=== PATIENT | female | born 1970 | race Caucasian/White ===

== ENCOUNTER 2021-07-20 15:42 | Observation (INO) | payer OTHER, SELFPAY ==
[2021-07-20] VITALS (20 sets, daily range): BP systolic 106–184; BP diastolic 64–84; PULSE 18–79; RESP 20; TEMP 36.9; O2SAT 91–100; BMI 35.7
[2021-07-20] MEDS: SODIUM CHLORIDE 0.9% 1,000 ML 1000 ML IV (17:08)
[2021-07-20] MEDS: ONDANSETRON 4 MG/2 ML INJ IV (17:08)
[2021-07-20 17:17] LABS: Add Manual Diff / Slide Review NO; Basophils Absolute Auto 0 /uL (0-100); Basophils Percent Auto 0.1 % (0-2); Eosinophils Absolute Auto 0 /uL (0-450); Hematocrit 37.1 % (36-46); Hemoglobin 12.3 g/dL (12.0-16.0); Lymphocytes Absolute Auto 600 /uL (1100-4500); Lymphocytes Percent Auto 4.9 % (25-40); Mean Corpuscular HGB Conc 33.2 % (30-36); Mean Corpuscular Hemoglobin 28.7 PG (26-34); Mean Corpuscular Volume 86.5 fL (80-100); Monocytes Absolute Auto 200 /uL (0-900); Monocytes Percent Auto 1.8 % (3-14); Neutrophils Absolute Auto 12300 /uL (1500-7000); Neutrophils Percent Auto 93.2 % (50-75); Platelet Count 251 X10^3/uL (150-400); Red Blood Cell Count 4.28 X10^6/uL (4.0-5.2); Red Cell Distribution Width 14.1 % (11.6-14.8); White Blood Cell Count 13.2 X10^3/uL (4.5-11.0)
[2021-07-20 17:27] LABS: Alanine Aminotransferase 15 IU/L (<35); Albumin 4.3 g/dL (3.5-5.0); Albumin Globulin Ratio 1.3 (1.0-2.8); Alkaline Phosphatase 47 U/L (38-126); Aspartate Aminotransferase 21 IU/L (14-36); BUN Creatinine Ratio 17.8 (6-22); Bilirubin Total 0.7 mg/dL (0.2-1.3); Blood Urea Nitrogen 16 mg/dL (7-17); Calcium 9.2 mg/dL (8.4-10.2); Carbon Dioxide 23 mmol/L (22-32); Chloride 107 mmol/L (98-107); Estimated Glomerular Filt Rate > 60.0 mL/min (>60); Globulin 3.2 g/dL (1.7-4.1); Glucose 147 mg/dL (70-100); HEMOLYSIS < 15 (0-50); Lipase 77 U/L (23-300); Potassium 4.3 mmol/L (3.4-5.1); Sodium 138 mmol/L (137-145); Total Protein 7.5 g/dL (6.3-8.2)
--- NOTE | 2021-07-20 18:05 | ED.NAVMDI ---
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 this morning she notes that throughout the day she has been vomiting almost every 45 minutes she took some Zofran in the middle of the day that did not influence her vomiting. Currently at [employer] The emesis was initially food then bilious. She reports no coffee-ground or bloody emesis. Reports a single formed stool this morning and no associated diarrhea. She has never had abdominal surgeries and has never had similar complaints. She does note that a month ago she woke up early in the morning and had a single episode of emesis which was unusual for her. She describes no headaches, cough, fever, chills, rashes, palpitations or chest pain. Related Data Previous Rx's Medication Instructions Recorded acetaminophen 325 mg capsule 650 mg PO QID PRN #60 cap 07/23/21 (Tylenol) docusate sodium 100 mg capsule 100 mg PO BID #30 cap 07/23/21 (Colace) hydrocodone 10 mg-acetaminophen 1 tab PO Q6H PRN #16 tab 07/23/21 325 mg tablet ibuprofen 200 mg tablet 400 mg PO Q6H #60 tab 07/23/21 Allergies Allergy/AdvReac Type Severity Reaction Status Date / Time No Known Drug Allergies Allergy Verified 07/21/21 18:41 Review of Systems <Priya Hinds MD - Last Filed: 07/24/21 10:25> Review of Systems Narrative: Remainder of complete review of systems is otherwise unremarkable except for that included in the HPI. Patient History <Priya Hinds MD - Last Filed: 07/24/21 10:25> Social History household members: spouse Smoking Status: Never smoker alcohol intake: current Smoking Status: Never smoker alcohol intake frequency: holidays/special occasions only Substance Use Type: does not use Exam <Priya Hinds MD - Last Filed: 07/24/21 10:25> Narrative Exam Narrative: General: Healthy appearing, in no acute distress. Able to give a complete and coherent history. Well-nourished well-developed HEENT: Moist mucous membranes, normal sclera with reactive pupils, Neck: No JVD, supple Respiratory: Lungs are clear to auscultation, no wheezing no rales no rhonchi. Full and symmetrical air movement Cardiac: Regular rate and rhythm no murmurs no bruits Abdomen: Soft, significantly tender over the epigastrium with moderate tenderness into the right and left upper quadrants without rebound or guarding. Hypoactive bowel tones but no flank pain Skin: Warm and dry, no rashes Neurologic: Grossly neurologically intact with no obvious asymmetries or abnormalities Extremities: No trauma, well perfused Psych: Cooperative, appropriate insight and affect Initial Vital Signs Initial Vital Signs: Vital Signs Temperature 98.5 F 07/20/21 15:55 Pulse Rate 60 07/20/21 15:55 Respiratory Rate 20 07/20/21 15:55 Blood Pressure 184/76 H 07/20/21 15:55 Pulse Oximetry 99 07/20/21 15:55 <Hilario Davila DO - Last Filed: 07/21/21 12:35> Initial Vital Signs Initial Vital Signs: Vital Signs Temperature 98.5 F 07/20/21 15:55 Pulse Rate 60 07/20/21 15:55 Respiratory Rate 20 07/20/21 15:55 Blood Pressure 184/76 H 07/20/21 15:55 Pulse Oximetry 99 07/20/21 15:55 Course <Priya Hinds MD - Last Filed: 07/24/21 10:25> Orders Ordered: Discontinued Medications Acetaminophen (Acetaminophen 325 Mg Tablet) 650 mg PO Q6HR PRN PRN Reason: Fever/Mild Pain (1-3) Last Admin: 07/22/21 22:02 Dose: 650 mg Documented by: Admin: 07/21/21 19:41 Dose: 650 mg Documented by: ARMANDO Acetaminophen (Acetaminophen 325 Mg Tablet) 650 mg PO NOW ONE Stop: 07/22/21 14:11 Last Admin: 07/22/21 14:41 Dose: 650 mg Documented by: EDDIE Hydrocodone Bitart/Acetaminophen (Hydrocodone/Acet 5/325 Tablet) 1 tab PO Q4HR PRN PRN Reason: Pain, Moderate (4-6) Last Admin: 07/23/21 11:13 Dose: 1 tab Documented by: SHAY Albuterol (Albuterol 2.5 Mg/3 Ml Neb (Adult)) 2.5 mg INH NOW PRN PRN Reason: Coughing, Wheezing, Dyspnea Bupivacaine HCl (Bupivacaine 0.5% (Pf) Vial) 30 ml INJ NOW ONE Stop: 07/22/21 15:27 Last Admin: 07/22/21 15:29 Dose: 20 ml Documented by: MARGY Cefazolin Sodium/Dextrose (Cefazolin 2 Gm/20 Ml Syringe) 2 gm IV NOW ONE Stop: 07/22/21 15:26 Last Admin: 07/22/21 15:10 Dose: 2 gm Documented by: SUKUMAR Fentanyl (Fentanyl 100 Mcg/2 Ml Inj) 0 mcg IV Q5M PRN PRN Reason: Pain, Moderate (4-6) Last Admin: 07/22/21 16:59 Dose: 50 mcg Documented by: LUKAS Gabapentin (Gabapentin 300 Mg Capsule) 300 mg PO NOW ONE Stop: 07/22/21 14:11 Last Admin: 07/22/21 14:41 Dose: 300 mg Documented by: EDDIE Hydromorphone HCl (Hydromorphone 0.5 Mg Inj) 0.5 mg IV Q15MIN PRN PRN Reason: Pain, Last Admin: 07/21/21 05:34 Dose: 0.5 mg Documented by: Admin: 07/20/21 20:38 Dose: 0.5 mg Documented by: RENEE Hydromorphone HCl (Hydromorphone 1 Mg Inj) 0.5 mg IV Q3H PRN PRN Reason: Pain, Severe (7-10) Last Admin: 07/22/21 18:26 Dose: 0.5 mg Documented by: SHAY Hydromorphone HCl (Hydromorphone 2 Mg Inj) 0 mg IV Q5MIN PRN PRN Reason: Pain, Mild (1-3) Sodium Chloride (Normal Saline 0.9%) 1,000 mls @ 1,000 mls/hr IV BOLUS ONE Stop: 07/20/21 18:00 Last Infusion: 07/20/21 18:19 Dose: 0 mls/hr Documented by: Admin: 07/20/21 17:08 Dose: 1,000 mls/hr Documented by: RENEE Sodium Chloride (Normal Saline 0.9%) 1,000 mls @ 150 mls/hr IV CONT BENJA Last Infusion: 07/21/21 10:00 Dose: 0 mls/hr Documented by: Admin: 07/21/21 04:12 Dose: 150 mls/hr Documented by: Infusion: 07/21/21 03:18 Dose: 150 mls/hr Documented by: Admin: 07/20/21 20:37 Dose: 150 mls/hr Documented by: RENEE Sodium Chloride (Normal Saline 0.9%) 500 mls @ 125 mls/hr IV BOLUS ONE Stop: 07/21/21 19:44 Last Infusion: 07/21/21 16:30 Dose: 0 mls/hr Documented by: Admin: 07/21/21 12:00 Dose: 125 mls/hr Documented by: ROSE Lactated Ringer's (Lactated Ringers) 1,000 mls @ 100 mls/hr IV CONT BENJA Last Admin: 07/22/21 18:27 Dose: 100 mls/hr Documented by: Infusion: 07/22/21 15:05 Dose: 100 mls/hr Documented by: Admin: 07/22/21 05:05 Dose: 100 mls/hr Documented by: Infusion: 07/22/21 05:05 Dose: 100 mls/hr Documented by: Admin: 07/21/21 19:16 Dose: 100 mls/hr Documented by: SMMARQUITA Lactated Ringer's (Lactated Ringers) 1,000 mls @ 42 mls/hr IV CONT BENJA Last Admin: 07/22/21 14:43 Dose: 42 mls/hr Documented by: EDDIE Ibuprofen (Ibuprofen 600 Mg Tablet) 600 mg PO Q6HR PRN PRN Reason: Fever/Mild Pain (1-3) Last Admin: 07/23/21 11:14 Dose: 600 mg Documented by: Admin: 07/23/21 05:08 Dose: 600 mg Documented by: Admin: 07/22/21 22:02 Dose: 600 mg Documented by: LUPE Influenza Virus Vaccine (Influenza Vaccine Qiv 0.5 Ml Syringe) 0.5 ml IM .ONCE ONE Stop: 07/23/21 08:01 Last Admin: 07/23/21 10:22 Dose: 0.5 ml Documented by: SHAY Iopamidol (Iopamidol 15 Ml Vial) 15 ml INJ NOW ONE Stop: 07/22/21 15:32 Last Admin: 07/22/21 15:32 Dose: 30 ml Documented by: MARGY Lidocaine/Epinephrine (Lidocaine 1% W/Epi) 20 ml INJ NOW ONE Stop: 07/22/21 15:30 Last Admin: 07/22/21 15:30 Dose: 20 ml Documented by: MARGY Metoclopramide HCl (Metoclopramide 10 Mg/2 Ml Inj) 10 mg IV Q8HR PRN PRN Reason: Nausea And Vomiting Last Admin: 07/22/21 18:26 Dose: 10 mg Documented by: SHAY Naloxone HCl (Naloxone 0.4 Mg/Ml Vial) 0.2 mg IV Q2MIN PRN PRN Reason: Opiate Reversal Ondansetron HCl (Ondansetron 4 Mg/2 Ml Inj) 4 mg IV NOW ONE Stop: 07/20/21 17:03 Last Admin: 07/20/21 17:08 Dose: 4 mg Documented by: RENEE Ondansetron HCl (Ondansetron 4 Mg/2 Ml Inj) 4 mg IV Q8HR PRN PRN Reason: Nausea And Vomiting Last Admin: 07/22/21 17:13 Dose: 4 mg Documented by: LUKAS Ondansetron HCl (Ondansetron 4 Mg/2 Ml Inj) 4 mg IV NOW PRN PRN Reason: Nausea And Vomiting Oxycodone HCl (Oxycodone Ir 5 Mg Tablet) 5 mg PO PACUNOW PRN PRN Reason: Mild or moderate pain Last Admin: 07/22/21 17:15 Dose: 5 mg Documented by: LUKAS Scopolamine (Scopolamine 1 Patch) 1 patch TOP NOW ONE Stop: 07/22/21 14:11 Last Admin: 07/22/21 14:40 Dose: 1 patch Documented by: EDDIE Sodium Chloride (Sodium Chloride 0.9% Flush) 10 ml IV NOW ONE Stop: 07/22/21 15:33 Last Admin: 07/22/21 15:32 Dose: 30 ml Documented by: MARGY Vital Signs Vital signs: Vital Signs - 8 hr 07/21/21 04:42 07/21/21 04:43 07/21/21 05:00 Pulse Rate 57 L 52 L 50 L Respiratory Rate 17 Blood Pressure 106/67 106/67 Pulse Oximetry 96 98 96 07/21/21 05:36 07/21/21 06:00 07/21/21 06:30 Pulse Rate 64 53 L 52 L Respiratory Rate Blood Pressure Pulse Oximetry 91 93 95 07/21/21 07:00 07/21/21 07:30 07/21/21 08:00 Pulse Rate 53 L 49 L 49 L Respiratory Rate Blood Pressure Pulse Oximetry 95 93 94 07/21/21 08:30 07/21/21 09:00 07/21/21 09:30 Pulse Rate 56 L 49 L 46 L Respiratory Rate Blood Pressure Pulse Oximetry 95 94 95 07/21/21 09:59 Pulse Rate 58 L Respiratory Rate Blood Pressure 92/59 L Pulse Oximetry 96 <Hialrio Davila DO - Last Filed: 07/21/21 12:35> Orders Ordered: Discontinued Medications Acetaminophen (Acetaminophen 325 Mg Tablet) 650 mg PO Q6HR PRN PRN Reason: Fever/Mild Pain (1-3) Last Admin: 07/22/21 22:02 Dose: 650 mg Documented by: Admin: 07/21/21 19:41 Dose: 650 mg Documented by: ARMANDO Acetaminophen (Acetaminophen 325 Mg Tablet) 650 mg PO NOW ONE Stop: 07/22/21 14:11 Last Admin: 07/22/21 14:41 Dose: 650 mg Documented by: EDDIE Hydrocodone Bitart/Acetaminophen (Hydrocodone/Acet 5/325 Tablet) 1 tab PO Q4HR PRN PRN Reason: Pain, Moderate (4-6) Last Admin: 07/23/21 11:13 Dose: 1 tab Documented by: SHAY Albuterol (Albuterol 2.5 Mg/3 Ml Neb (Adult)) 2.5 mg INH NOW PRN PRN Reason: Coughing, Wheezing, Dyspnea Bupivacaine HCl (Bupivacaine 0.5% (Pf) Vial) 30 ml INJ NOW ONE Stop: 07/22/21 15:27 Last Admin: 07/22/21 15:29 Dose: 20 ml Documented by: MARGY Cefazolin Sodium/Dextrose (Cefazolin 2 Gm/20 Ml Syringe) 2 gm IV NOW ONE Stop: 07/22/21 15:26 Last Admin: 07/22/21 15:10 Dose: 2 gm Documented by: SUKUMAR Fentanyl (Fentanyl 100 Mcg/2 Ml Inj) 0 mcg IV Q5M PRN PRN Reason: Pain, Moderate (4-6) Last Admin: 07/22/21 16:59 Dose: 50 mcg Documented by: LUKAS Gabapentin (Gabapentin 300 Mg Capsule) 300 mg PO NOW ONE Stop: 07/22/21 14:11 Last Admin: 07/22/21 14:41 Dose: 300 mg Documented by: EDDIE Hydromorphone HCl (Hydromorphone 0.5 Mg Inj) 0.5 mg IV Q15MIN PRN PRN Reason: Pain, Last Admin: 07/21/21 05:34 Dose: 0.5 mg Documented by: Admin: 07/20/21 20:38 Dose: 0.5 mg Documented by: RENEE Hydromorphone HCl (Hydromorphone 1 Mg Inj) 0.5 mg IV Q3H PRN PRN Reason: Pain, Severe (7-10) Last Admin: 07/22/21 18:26 Dose: 0.5 mg Documented by: SHAY Hydromorphone HCl (Hydromorphone 2 Mg Inj) 0 mg IV Q5MIN PRN PRN Reason: Pain, Mild (1-3) Sodium Chloride (Normal Saline 0.9%) 1,000 mls @ 1,000 mls/hr IV BOLUS ONE Stop: 07/20/21 18:00 Last Infusion: 07/20/21 18:19 Dose: 0 mls/hr Documented by: Admin: 07/20/21 17:08 Dose: 1,000 mls/hr Documented by: RENEE Sodium Chloride (Normal Saline 0.9%) 1,000 mls @ 150 mls/hr IV CONT BENJA Last Infusion: 07/21/21 10:00 Dose: 0 mls/hr Documented by: Admin: 07/21/21 04:12 Dose: 150 mls/hr Documented by: Infusion: 07/21/21 03:18 Dose: 150 mls/hr Documented by: Admin: 07/20/21 20:37 Dose: 150 mls/hr Documented by: RENEE Sodium Chloride (Normal Saline 0.9%) 500 mls @ 125 mls/hr IV BOLUS ONE Stop: 07/21/21 19:44 Last Infusion: 07/21/21 16:30 Dose: 0 mls/hr Documented by: Admin: 07/21/21 12:00 Dose: 125 mls/hr Documented by: BTONEGabi Lactated Ringer's (Lactated Ringers) 1,000 mls @ 100 mls/hr IV CONT BENJA Last Admin: 07/22/21 18:27 Dose: 100 mls/hr Documented by: Infusion: 07/22/21 15:05 Dose: 100 mls/hr Documented by: Admin: 07/22/21 05:05 Dose: 100 mls/hr Documented by: Infusion: 07/22/21 05:05 Dose: 100 mls/hr Documented by: Admin: 07/21/21 19:16 Dose: 100 mls/hr Documented by: OSCAR Lactated Ringer's (Lactated Ringers) 1,000 mls @ 42 mls/hr IV CONT BENJA Last Admin: 07/22/21 14:43 Dose: 42 mls/hr Documented by: EDDIE Ibuprofen (Ibuprofen 600 Mg Tablet) 600 mg PO Q6HR PRN PRN Reason: Fever/Mild Pain (1-3) Last Admin: 07/23/21 11:14 Dose: 600 mg Documented by: Admin: 07/23/21 05:08 Dose: 600 mg Documented by: Admin: 07/22/21 22:02 Dose: 600 mg Documented by: LUPE Influenza Virus Vaccine (Influenza Vaccine Qiv 0.5 Ml Syringe) 0.5 ml IM .ONCE ONE Stop: 07/23/21 08:01 Last Admin: 07/23/21 10:22 Dose: 0.5 ml Documented by: SHAY Iopamidol (Iopamidol 15 Ml Vial) 15 ml INJ NOW ONE Stop: 07/22/21 15:32 Last Admin: 07/22/21 15:32 Dose: 30 ml Documented by: MARGY Lidocaine/Epinephrine (Lidocaine 1% W/Epi) 20 ml INJ NOW ONE Stop: 07/22/21 15:30 Last Admin: 07/22/21 15:30 Dose: 20 ml Documented by: MARGY Metoclopramide HCl (Metoclopramide 10 Mg/2 Ml Inj) 10 mg IV Q8HR PRN PRN Reason: Nausea And Vomiting Last Admin: 07/22/21 18:26 Dose: 10 mg Documented by: SHAY Naloxone HCl (Naloxone 0.4 Mg/Ml Vial) 0.2 mg IV Q2MIN PRN PRN Reason: Opiate Reversal Ondansetron HCl (Ondansetron 4 Mg/2 Ml Inj) 4 mg IV NOW ONE Stop: 07/20/21 17:03 Last Admin: 07/20/21 17:08 Dose: 4 mg Documented by: RENEE Ondansetron HCl (Ondansetron 4 Mg/2 Ml Inj) 4 mg IV Q8HR PRN PRN Reason: Nausea And Vomiting Last Admin: 07/22/21 17:13 Dose: 4 mg Documented by: LUKAS Ondansetron HCl (Ondansetron 4 Mg/2 Ml Inj) 4 mg IV NOW PRN PRN Reason: Nausea And Vomiting Oxycodone HCl (Oxycodone Ir 5 Mg Tablet) 5 mg PO PACUNOW PRN PRN Reason: Mild or moderate pain Last Admin: 07/22/21 17:15 Dose: 5 mg Documented by: LUKAS Scopolamine (Scopolamine 1 Patch) 1 patch TOP NOW ONE Stop: 07/22/21 14:11 Last Admin: 07/22/21 14:40 Dose: 1 patch Documented by: EDDIE Sodium Chloride (Sodium Chloride 0.9% Flush) 10 ml IV NOW ONE Stop: 07/22/21 15:33 Last Admin: 07/22/21 15:32 Dose: 30 ml Documented by: MARGY Vital Signs Vital signs: Vital Signs - 8 hr 07/21/21 04:42 07/21/21 04:43 07/21/21 05:00 Pulse Rate 57 L 52 L 50 L Respiratory Rate 17 Blood Pressure 106/67 106/67 Pulse Oximetry 96 98 96 07/21/21 05:36 07/21/21 06:00 07/21/21 06:30 Pulse Rate 64 53 L 52 L Respiratory Rate Blood Pressure Pulse Oximetry 91 93 95 07/21/21 07:00 07/21/21 07:30 07/21/21 08:00 Pulse Rate 53 L 49 L 49 L Respiratory Rate Blood Pressure Pulse Oximetry 95 93 94 07/21/21 08:30 07/21/21 09:00 07/21/21 09:30 Pulse Rate 56 L 49 L 46 L Respiratory Rate Blood Pressure Pulse Oximetry 95 94 95 07/21/21 09:59 Pulse Rate 58 L Respiratory Rate Blood Pressure 92/59 L Pulse Oximetry 96 MDM - Nausea/Vomiting/Diarrhea <Priya Hinds MD - Last Filed: 07/24/21 10:25> Lab Data Result diagrams: 07/21/21 07:20 07/21/21 07:20 Labs: Lab Results 07/20/21 07/20/21 07/20/21 Range/Units 17:00 17:00 20:30 WBC 13.2 H (4.5-11.0) X10^3/uL RBC 4.28 (4.0-5.2) X10^6/uL Hgb 12.3 (12.0-16.0) g/dL Hct 37.1 (36-46) % MCV 86.5 (80-100) fL MCH 28.7 (26-34) PG MCHC 33.2 (30-36) % RDW 14.1 (11.6-14.8) % Plt Count 251 (150-400) X10^3/uL Neut % (Auto) 93.2 H (50-75) % Lymph % (Auto) 4.9 L (25-40) % [place] % (Auto) 1.8 L (3-14) % Eos % (Auto) 0.0 L (2-4) % Baso % (Auto) 0.1 (0-2) % Neut # (Auto) 89099 H (1455-4591) /uL Lymph # (Auto) 600 L (6395-5415) /uL [place] # (Auto) 200 (0-900) /uL Eos # (Auto) 0 (0-450) /uL Baso # (Auto) 0 (0-100) /uL Sodium 138 (137-145) mmol/L Potassium 4.3 (3.4-5.1) mmol/L Chloride 107 (98-107) mmol/L Carbon Dioxide 23 (22-32) mmol/L BUN 16 (7-17) mg/dL Creatinine 0.90 (0.52-1.04) mg/dL Estimated GFR > 60.0 (>60) mL/min BUN/Creatinine Ratio 17.8 (6-22) Glucose 147 H (70-100) mg/dL Calcium 9.2 (8.4-10.2) mg/dL Total Bilirubin 0.7 (0.2-1.3) mg/dL AST 21 (14-36) IU/L ALT 15 (<35) IU/L Alkaline Phosphatase 47 (38-126) U/L Total Protein 7.5 (6.3-8.2) g/dL Albumin 4.3 (3.5-5.0) g/dL Globulin 3.2 (1.7-4.1) g/dL Albumin/Globulin Ratio 1.3 (1.0-2.8) Lipase 77 (23-300) U/L SARS-CoV-2 (PCR) Negative (Negative) 07/21/21 07/21/21 Range/Units 07:20 07:20 WBC 10.9 (4.5-11.0) X10^3/uL RBC 3.68 L (4.0-5.2) X10^6/uL Hgb 10.8 L (12.0-16.0) g/dL Hct 31.9 L (36-46) % MCV 86.8 (80-100) fL MCH 29.4 (26-34) PG MCHC 33.9 (30-36) % RDW 13.8 (11.6-14.8) % Plt Count 218 (150-400) X10^3/uL Neut % (Auto) (50-75) % Lymph % (Auto) (25-40) % [place] % (Auto) (3-14) % Eos % (Auto) (2-4) % Baso % (Auto) (0-2) % Neut # (Auto) (3795-8320) /uL Lymph # (Auto) (9934-8035) /uL [place] # (Auto) (0-900) /uL Eos # (Auto) (0-450) /uL Baso # (Auto) (0-100) /uL Sodium 140 (137-145) mmol/L Potassium 4.0 (3.4-5.1) mmol/L Chloride 111 H (98-107) mmol/L Carbon Dioxide 25 (22-32) mmol/L BUN 13 (7-17) mg/dL Creatinine 0.85 (0.52-1.04) mg/dL Estimated GFR > 60.0 (>60) mL/min BUN/Creatinine Ratio 15.3 (6-22) Glucose 97 (70-100) mg/dL Calcium 7.7 L (8.4-10.2) mg/dL Total Bilirubin 0.5 (0.2-1.3) mg/dL AST 17 (14-36) IU/L ALT 11 (<35) IU/L Alkaline Phosphatase 32 L (38-126) U/L Total Protein 5.7 L (6.3-8.2) g/dL Albumin 3.1 L (3.5-5.0) g/dL Globulin 2.6 (1.7-4.1) g/dL Albumin/Globulin Ratio 1.2 (1.0-2.8) Lipase (23-300) U/L SARS-CoV-2 (PCR) (Negative) Point of Care Testing Test Results Negative Urine Dip Bedside Urine Glucose Negative Bedside Urine Bilirubin - Negative Bedside Urine Ketone - Negative Urine Specific [place] 1.030 Bedside Urine Occult Blood +/- Bedside Urine pH 6.0 Bedside Urine Protein - Negative Bedside Urine Urobilinogen - Negative Bedside Urine Nitrite - Negative Bedside Urine Leukocytes - Negative Esterase MDM Narrative Medical decision making narrative: Otherwise healthy 50-year-old woman presents with acute onset right upper quadrant pain leukocytosis and dilated common bile duct and cystic duct with stones layering in the gallbladder. Question of developing cholecystitis verses choledocholithiasis. Liver function studies are normal at this time pain has been controlled. Case is reviewed with Dr. Torres, surgery. Given current pandemic conditions with no bed availability throughout [facility] and no definitive diagnosis of common duct stone will opt to for this patient in the emergency room overnight with anticipation of MRCP and repeat liver studies to be done in the morning. Will re-evaluate after studies return to see if she will need transfer to a facility with ERCP capacity or whether we are able to meet her needs at this facility. Plan and reasoning is reviewed with patient. She is agreeable. <Hilario Davila DO - Last Filed: 07/21/21 12:35> Lab Data Labs: Lab Results 07/20/21 07/20/21 07/20/21 Range/Units 17:00 17:00 20:30 WBC 13.2 H (4.5-11.0) X10^3/uL RBC 4.28 (4.0-5.2) X10^6/uL Hgb 12.3 (12.0-16.0) g/dL Hct 37.1 (36-46) % MCV 86.5 (80-100) fL MCH 28.7 (26-34) PG MCHC 33.2 (30-36) % RDW 14.1 (11.6-14.8) % Plt Count 251 (150-400) X10^3/uL Neut % (Auto) 93.2 H (50-75) % Lymph % (Auto) 4.9 L (25-40) % [place] % (Auto) 1.8 L (3-14) % Eos % (Auto) 0.0 L (2-4) % Baso % (Auto) 0.1 (0-2) % Neut # (Auto) 82587 H (5476-7995) /uL Lymph # (Auto) 600 L (2405-2503) /uL [place] # (Auto) 200 (0-900) /uL Eos # (Auto) 0 (0-450) /uL Baso # (Auto) 0 (0-100) /uL Sodium 138 (137-145) mmol/L Potassium 4.3 (3.4-5.1) mmol/L Chloride 107 (98-107) mmol/L Carbon Dioxide 23 (22-32) mmol/L BUN 16 (7-17) mg/dL Creatinine 0.90 (0.52-1.04) mg/dL Estimated GFR > 60.0 (>60) mL/min BUN/Creatinine Ratio 17.8 (6-22) Glucose 147 H (70-100) mg/dL Calcium 9.2 (8.4-10.2) mg/dL Total Bilirubin 0.7 (0.2-1.3) mg/dL AST 21 (14-36) IU/L ALT 15 (<35) IU/L Alkaline Phosphatase 47 (38-126) U/L Total Protein 7.5 (6.3-8.2) g/dL Albumin 4.3 (3.5-5.0) g/dL Globulin 3.2 (1.7-4.1) g/dL Albumin/Globulin Ratio 1.3 (1.0-2.8) Lipase 77 (23-300) U/L SARS-CoV-2 (PCR) Negative (Negative) 07/21/21 07/21/21 Range/Units 07:20 07:20 WBC 10.9 (4.5-11.0) X10^3/uL RBC 3.68 L (4.0-5.2) X10^6/uL Hgb 10.8 L (12.0-16.0) g/dL Hct 31.9 L (36-46) % MCV 86.8 (80-100) fL MCH 29.4 (26-34) PG MCHC 33.9 (30-36) % RDW 13.8 (11.6-14.8) % Plt Count 218 (150-400) X10^3/uL Neut % (Auto) (50-75) % Lymph % (Auto) (25-40) % [place] % (Auto) (3-14) % Eos % (Auto) (2-4) % Baso % (Auto) (0-2) % Neut # (Auto) (9866-3895) /uL Lymph # (Auto) (7766-7501) /uL [place] # (Auto) (0-900) /uL Eos # (Auto) (0-450) /uL Baso # (Auto) (0-100) /uL Sodium 140 (137-145) mmol/L Potassium 4.0 (3.4-5.1) mmol/L Chloride 111 H (98-107) mmol/L Carbon Dioxide 25 (22-32) mmol/L BUN 13 (7-17) mg/dL Creatinine 0.85 (0.52-1.04) mg/dL Estimated GFR > 60.0 (>60) mL/min BUN/Creatinine Ratio 15.3 (6-22) Glucose 97 (70-100) mg/dL Calcium 7.7 L (8.4-10.2) mg/dL Total Bilirubin 0.5 (0.2-1.3) mg/dL AST 17 (14-36) IU/L ALT 11 (<35) IU/L Alkaline Phosphatase 32 L (38-126) U/L Total Protein 5.7 L (6.3-8.2) g/dL Albumin 3.1 L (3.5-5.0) g/dL Globulin 2.6 (1.7-4.1) g/dL Albumin/Globulin Ratio 1.2 (1.0-2.8) Lipase (23-300) U/L SARS-CoV-2 (PCR) (Negative) Point of Care Testing Test Results Negative Urine Dip Bedside Urine Glucose Negative Bedside Urine Bilirubin - Negative Bedside Urine Ketone - Negative Urine Specific [place] 1.030 Bedside Urine Occult Blood +/- Bedside Urine pH 6.0 Bedside Urine Protein - Negative Bedside Urine Urobilinogen - Negative Bedside Urine Nitrite - Negative Bedside Urine Leukocytes - Negative Esterase Imaging Data MRCP: Radiologist's Impression: [address] [address] Magnetic Resonance Report Signed Patient: Inés Cooper MR#: [id number] : 1970 Acct:[id number] Age/Sex: 50 / F Date of Service: 07/20/21 Loc: ED Accession Number: [id number] ?? Procedure: MR abdomen wo con Ordering Provider: Priya Hinds MD PROCEDURE:? MR ABDOMEN WO CON ? INDICATIONS:? ? common duct stone ? TECHNIQUE:? Coronal HASTE through the abdomen, axial 2-D FLASH in- and [id number], and breath-hold T2 FSE with fat saturation through the biliary system and pancreas.? Oblique coronal and axial thin-slice HASTE, radial thick-slab HASTE centered on the extrahepatic bile ducts.? ? ? Intravenous secretin:? Not requested.? ? COMPARISON:? [facility], CT, CT ABDOMEN PELVIS W CON, 07/20/2021, 18:27. ? FINDINGS:? Image quality:? Excellent.? ? Pancreas and biliary system:? Moderate pericholecystic fluid.? There are several stones dependently in the gallbladder fundus.? A stone is seen in the cystic duct.? The common bile duct is 1.3-1.4 cm in diameter.? There are no filling defects.? The duct tapers abruptly at the ampulla.? Minor diffuse intrahepatic biliary dilatation.? The pancreatic duct is normal caliber.? The pancreas appears otherwise normal. ? Other solid organs:? Liver is normal in size.? Scattered hepatic cysts.? Spleen is normal in size.? No adrenal nodules.? Both kidneys are normal in size, without hydronephrosis.? ? Nodes and vessels:? No retroperitoneal or mesenteric adenopathy by size criteria.? Aorta and inferior vena cava are normal in size.? ? Bowel and peritoneum:? Unenhanced bowel loops are normal in caliber.? No free fluid.? ? Lung bases:? No basal pleural effusions.? Heart size is normal.? ? Bones and soft tissues:? No ventral hernias.? Bone marrow is of normal overall signal.? ? IMPRESSION:? 1. Findings of acute cholecystitis including a cystic duct stone.? Surgical consult recommended. 2. Dilated common duct without filling defect.? This can be seen with ampullary edema or distal common duct stricture.? ? ? Dictated by: Deborah Jorgensen M.D. on 07/21/2021 at 11:58 ? ? Approved by: Deborah Jorgensen M.D. on 07/21/2021 at 12:05?? MDM Narrative Medical decision making narrative: Otherwise healthy 50-year-old woman presents with acute onset right upper quadrant pain leukocytosis and dilated common bile duct and cystic duct with stones layering in the gallbladder. Question of developing cholecystitis verses choledocholithiasis. Liver function studies are normal at this time pain has been controlled. Case is reviewed with Dr. Torres, surgery. Given current pandemic conditions with no bed availability throughout [facility] and no definitive diagnosis of common duct stone will opt to for this patient in the emergency room overnight with anticipation of MRCP and repeat liver studies to be done in the morning. Will re-evaluate after studies return to see if she will need transfer to a facility with ERCP capacity or whether we are able to meet her needs at this facility. Plan and reasoning is reviewed with patient. She is agreeable. Dr davila: Received turned over. Review patient's history and physical. Patient's MRCP is consistent with acute cholecystitis without a common bile duct stone. Patient's repeat labs unremarkable. Discussed case with Dr. Chau on-call for General surgery who recommended that the patient be admitted for a gallbladder removal. I did discuss this with the patient. She is in agreement. We did discuss the possibility of going home and coming back as an outpatient however she would like to have the procedure done now. Pain is controlled. Discharge Plan Departure Patient Disposition: Admitted as Observation Clinical Impression: Acute cholecystitis Admit Date/Time: 07/21/21 14:13 Admit Provider: Bakari Chau
--- NOTE | 2021-07-20 18:16 | DI.CT.S_ITS ---
PROCEDURE: CT ABDOMEN PELVIS W CON INDICATIONS: Acute upper abdominal pain with leukocytosis and persistent TECHNIQUE: After the administration of intravenous contrast, axial sections acquired from the lung bases to the pubic symphysis. Coronal and sagittal reformats were performed. For radiation dose reduction, the following was used: automated exposure control, adjustment of mA and/or kV according to patient size. COMPARISON: None. FINDINGS: Common bile duct is dilated up to 15 millimeters. The cystic duct also appears mildly dilated. There are a few small calcified gallstones near the gallbladder neck and layering dependently in the gallbladder. No definite gallbladder wall thickening. Small volume pericholecystic fluid adjacent to the liver. Mild intrahepatic biliary ductal dilatation. Liver otherwise normal. Normal CT appearance of the spleen, adrenal glands, kidneys, and pancreas. No abnormally dilated or thickened loop of bowel. No pericolonic or mesenteric inflammatory changes. Nonaneurysmal and otherwise unremarkable abdominal aorta. No threshold enlarged intra-abdominal, retroperitoneal, pelvic, or inguinal lymph node. Urinary bladder, uterus, and ovaries are within normal limits. Small volume free pelvic fluid is within physiologic normal limits if the patient is still menstruating. No acute or suspicious osseous abnormality. Included portions of the lung bases are clear. IMPRESSION: Cholelithiasis with dilated common bile duct and possibly cystic duct, along with small volume pericholecystic fluid. Findings raise concern for cholecystitis and potentially obstructive choledocholithiasis. Dictated by: Jean Paul Camp M.D. on 07/20/2021 at 18:50 Approved by: Jean Paul Camp M.D. on 07/20/2021 at 18:53
--- NOTE | 2021-07-20 20:28 | DI.MRI.S_ITS ---
PROCEDURE: MR ABDOMEN WO CON INDICATIONS: ? common duct stone TECHNIQUE: Coronal HASTE through the abdomen, axial 2-D FLASH in- and [id number], and breath-hold T2 FSE with fat saturation through the biliary system and pancreas. Oblique coronal and axial thin-slice HASTE, radial thick-slab HASTE centered on the extrahepatic bile ducts. Intravenous secretin: Not requested. COMPARISON: [facility], CT, CT ABDOMEN PELVIS W CON, 07/20/2021, 18:27. FINDINGS: Image quality: Excellent. Pancreas and biliary system: Moderate pericholecystic fluid. There are several stones dependently in the gallbladder fundus. A stone is seen in the cystic duct. The common bile duct is 1.3-1.4 cm in diameter. There are no filling defects. The duct tapers abruptly at the ampulla. Minor diffuse intrahepatic biliary dilatation. The pancreatic duct is normal caliber. The pancreas appears otherwise normal. Other solid organs: Liver is normal in size. Scattered hepatic cysts. Spleen is normal in size. No adrenal nodules. Both kidneys are normal in size, without hydronephrosis. Nodes and vessels: No retroperitoneal or mesenteric adenopathy by size criteria. Aorta and inferior vena cava are normal in size. Bowel and peritoneum: Unenhanced bowel loops are normal in caliber. No free fluid. Lung bases: No basal pleural effusions. Heart size is normal. Bones and soft tissues: No ventral hernias. Bone marrow is of normal overall signal. IMPRESSION: 1. Findings of acute cholecystitis including a cystic duct stone. Surgical consult recommended. 2. Dilated common duct without filling defect. This can be seen with ampullary edema or distal common duct stricture. Dictated by: Deborah Jorgensen M.D. on 07/21/2021 at 11:58 Approved by: Deborah Jorgensen M.D. on 07/21/2021 at 12:05
[2021-07-20] MEDS: SODIUM CHLORIDE 0.9% 1,000 ML 150 ML IV (20:37)
[2021-07-20] MEDS: HYDROMORPHONE 0.5 MG INJ IV (20:38)
[2021-07-20 21:44] LABS: COVID19 - ADMIT (NP swab/PCR) Negative (Negative)
[2021-07-21] VITALS (38 sets, daily range): BP systolic 92–128; BP diastolic 59–73; PULSE 46–87; RESP 17–20; TEMP 36.3–36.8; O2SAT 91–98; BMI 35.7
[2021-07-21] MEDS: SODIUM CHLORIDE 0.9% 1,000 ML 150 ML IV (04:12)
[2021-07-21] MEDS: HYDROMORPHONE 0.5 MG INJ IV (05:34)
[2021-07-21 07:27] LABS: Hematocrit 31.9 % (36-46); Hemoglobin 10.8 g/dL (12.0-16.0); Mean Corpuscular HGB Conc 33.9 % (30-36); Mean Corpuscular Hemoglobin 29.4 PG (26-34); Mean Corpuscular Volume 86.8 fL (80-100); Platelet Count 218 X10^3/uL (150-400); Red Blood Cell Count 3.68 X10^6/uL (4.0-5.2); Red Cell Distribution Width 13.8 % (11.6-14.8); White Blood Cell Count 10.9 X10^3/uL (4.5-11.0)
[2021-07-21 07:43] LABS: Alanine Aminotransferase 11 IU/L (<35); Albumin 3.1 g/dL (3.5-5.0); Albumin Globulin Ratio 1.2 (1.0-2.8); Alkaline Phosphatase 32 U/L (38-126); Aspartate Aminotransferase 17 IU/L (14-36); BUN Creatinine Ratio 15.3 (6-22); Bilirubin Total 0.5 mg/dL (0.2-1.3); Blood Urea Nitrogen 13 mg/dL (7-17); Calcium 7.7 mg/dL (8.4-10.2); Carbon Dioxide 25 mmol/L (22-32); Chloride 111 mmol/L (98-107); Estimated Glomerular Filt Rate > 60.0 mL/min (>60); Globulin 2.6 g/dL (1.7-4.1); Glucose 97 mg/dL (70-100); HEMOLYSIS 16 (0-50); Sodium 140 mmol/L (137-145); Total Protein 5.7 g/dL (6.3-8.2)
[2021-07-21] MEDS: SODIUM CHLORIDE 0.9% 500 ML 125 ML IV (12:00)
--- NOTE | 2021-07-21 16:52 | P.HP_ITS ---
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 She had similar symptoms once before but it resolved. She came to the ER last night and a CT demonstrated gallstones. There was also a suggestion of a dilated common bile duct and so an MRCP was performed. No common bile duct stone or other obstruction was noted. Her pain has improved somewhat since receiving pain medication here. Patient History Family & Social History Safety & Behavioral: Feels Safe in Current Yes Environment Been Physically Hurt or No Threatened By a Person Tobacco & Substance use: Smoking Status Never smoker alcohol intake frequency holiday/special occasion Substance Use Type does not use Exam Vital Signs (past 8 hours): - 07/21/21 09:00 07/21/21 09:30 07/21/21 09:58 Pulse Rate 49 L 46 L 62 Blood Pressure 92/59 L Pulse Oximetry 94 95 96 07/21/21 09:59 07/21/21 10:00 07/21/21 10:39 Pulse Rate 58 L 51 L 87 Blood Pressure 92/59 L Pulse Oximetry 96 93 96 07/21/21 11:00 07/21/21 11:30 07/21/21 12:00 Pulse Rate 59 L 54 L 57 L Blood Pressure Pulse Oximetry 95 95 97 07/21/21 12:30 07/21/21 13:00 07/21/21 13:30 Pulse Rate 58 L 58 L 63 Blood Pressure Pulse Oximetry 96 96 96 07/21/21 14:00 07/21/21 14:30 07/21/21 15:00 Pulse Rate 56 L 62 70 Blood Pressure Pulse Oximetry 96 97 94 Oxygen Delivery Method Room Air Narrative Exam Narrative: No acute distress Abdomen soft, tender to palpation in the right upper quadrant. No Mccall sign. Objective Labs Result Diagrams: 07/21/21 07:20 07/21/21 07:20 Labs: Laboratory Results - last 24 hr 07/20/21 07/20/21 07/20/21 17:00 17:00 20:30 WBC 13.2 H RBC 4.28 Hgb 12.3 Hct 37.1 MCV 86.5 MCH 28.7 MCHC 33.2 RDW 14.1 Plt Count 251 Neut % (Auto) 93.2 H Lymph % (Auto) 4.9 L Lawrence % (Auto) 1.8 L Eos % (Auto) 0.0 L Baso % (Auto) 0.1 Neut # (Auto) 89750 H Lymph # (Auto) 600 L Lawrence # (Auto) 200 Eos # (Auto) 0 Baso # (Auto) 0 Sodium 138 Potassium 4.3 Chloride 107 Carbon Dioxide 23 BUN 16 Creatinine 0.90 Estimated GFR > 60.0 BUN/Creatinine Ratio 17.8 Glucose 147 H Calcium 9.2 Total Bilirubin 0.7 AST 21 ALT 15 Alkaline Phosphatase 47 Total Protein 7.5 Albumin 4.3 Globulin 3.2 Albumin/Globulin Ratio 1.3 Lipase 77 SARS-CoV-2 (PCR) Negative 07/21/21 07/21/21 07:20 07:20 WBC 10.9 RBC 3.68 L Hgb 10.8 L Hct 31.9 L MCV 86.8 MCH 29.4 MCHC 33.9 RDW 13.8 Plt Count 218 Neut % (Auto) Lymph % (Auto) Lawrence % (Auto) Eos % (Auto) Baso % (Auto) Neut # (Auto) Lymph # (Auto) Lawrence # (Auto) Eos # (Auto) Baso # (Auto) Sodium 140 Potassium 4.0 Chloride 111 H Carbon Dioxide 25 BUN 13 Creatinine 0.85 Estimated GFR > 60.0 BUN/Creatinine Ratio 15.3 Glucose 97 Calcium 7.7 L Total Bilirubin 0.5 AST 17 ALT 11 Alkaline Phosphatase 32 L Total Protein 5.7 L Albumin 3.1 L Globulin 2.6 Albumin/Globulin Ratio 1.2 Lipase SARS-CoV-2 (PCR) Assessment & Plan Assessment and plan (1) Acute cholecystitis: Status: Acute Plan 50-year-old woman with acute cholecystitis. Described risks benefits and a lternatives of laparoscopic cholecystectomy with intraoperative cholangiogram. She would like to proceed. Most likely this will happen tomorrow as the OR is quite booked up tonight with emergency cases. Time Spent With Patient Critical Care time: I spent a total of [] minutes of critical care time on this patient's care to day; this time is exclusive of procedural time.
[2021-07-21] MEDS: LACTATED RINGERS 1,000 ML 100 ML IV (19:16)
[2021-07-21] MEDS: ACETAMINOPHEN 325 MG TABLET 650 MG PO (19:41)
--- NOTE | 2021-07-21 19:53 | PC.NURSE ---
Pt arrived to room 220 from ED, settled and oriented to room. A&OX3 VSS,afebrile. Endorsed to Kaitlin GAUTAM, completing admission.
[2021-07-22] VITALS (12 sets, daily range): BP systolic 99–142; BP diastolic 45–82; PULSE 42–69; RESP 12–19; TEMP 35.9–36.5; O2SAT 94–100; BMI 35.7
--- NOTE | 2021-07-22 | PATH_ITS ---
[facility] Accession Number: [id number] . 01 Material submitted: . gallbladder - GALLBLADDER . 01 Clinical history: . NAUSEA VOMITING AND ABDOMINAL PAIN . 02 Diagnosis: Gallbladder, Cholecystectomy: Chronic active cholecystitis with cholelithiasis. Negative for dysplasia and malignancy. MRV 07/24/2021 1318 Local . 02 Electronically signed: . Katrina Andino MD, Pathologist NPI- [id number] . 01 Gross description: . The specimen is received in formalin labeled gallbladder and consists of an 8.5 x 3.0 x 2.5 cm previously disrupted gallbladder with a 0.2 cm in diameter cystic duct. The serosa is nixon-pink and smooth with focal fibrinous adhesions. Opening reveals nixon-green mucoid bile with multiple green-black multifaceted choleliths and cholelith fragments ranging from 0.1 to 1.5 cm. The mucosa is nixon-pink and velvety with focal areas of adherent nixon-white purulent exudate. The wall thickness measures 0.3 cm. [employer] sections are submitted, to include the en face cystic duct margin (blue) in cassette A1. ([id number]) /[facility] 07/23/2021 1701 Local . 02 Pathologist provided ICD-10: K81.0 . 02 CPT . 321065 Performed at: [address] [facility] Cytology [address], [place], [place] [id number] MD Aly Diallo MD Phone: [phone] Performed at: 02 [facility] [address] [place], [place] [id number] MD Katrina Andino MD Phone: [phone]
[2021-07-22] MEDS: LACTATED RINGERS 1,000 ML 100 ML IV ×2 (05:05→18:27)
--- NOTE | 2021-07-22 12:15 | CM.DANOTE ---
DCP/Assessment: Reviewed chart. Patient is a 50yr old female admitted to [facility] with n/v and abdominal pain. No PCP listed. Primary payor is 1)Mark 2)Self pay. Attempted to meet with patient this AM. 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 Spoke with RN whom states that patient is I with all ADL's. Patient scheduled for lap merle today at around 3:00pm. At this time there are no anticipated d/c planning needs. CM team to continue to follow. P: Home when medically stable. KJ Discharge Planning/Care Management CM Discharge Assessment Start: 07/22/21 12:11 Freq: Status: Active Protocol: Document 07/22/21 12:11 KJS (Rec: 07/22/21 12:15 [facility] [id number]) Discharge Planning Assessment Assigned Packing Checker LOURDES Hawley Contact Information Rishabh Cooper (spouse) ph# Advance Directives? No History Provided By Medical Record Prior Living Arrangements House Household Members spouse Type of transporation used prior to Drives own vehicle admit Independent with ADL's Yes: Per Nursing Is patient alert and oriented? Yes: Per Nursing Barriers to Discharge No Discharge Plan Home Transportation Arrangement Family to provide transport. Additional Comment No d/c needs anticipated. Review Status In Process Next Review Type Continued Stay Review
[2021-07-22] MEDS: SCOPOLAMINE 1 PATCH TOP (14:40)
[2021-07-22] MEDS: ACETAMINOPHEN 325 MG TABLET 650 MG PO ×2 (14:41→22:02)
[2021-07-22] MEDS: GABAPENTIN 300 MG CAPSULE PO (14:41)
[2021-07-22] MEDS: LACTATED RINGERS 1,000 ML 42 ML IV (14:43)
[2021-07-22] MEDS: CEFAZOLIN 2 GM/20 ML SYRINGE IV (15:10)
--- NOTE | 2021-07-22 15:15 | DI.RAD.S_ITS ---
PROCEDURE: XR CHOLANGIOGRAM OPERATIVE INDICATIONS: cholecystitis COMPARISON: None. FINDINGS: Biliary ducts: The surgeon injected contrast into the biliary ducts after cannulation of the cystic duct stump. Visualized intra- and extrahepatic bile ducts are normal in caliber, without strictures. No intraluminal filling defects to suggest retained ductal stones or sludge. No evidence for iatrogenic ductal injury. Duodenum: Contrast flows promptly through the sphincter of Oddi into the duodenum, which appears normal in caliber. IMPRESSION: Unremarkable intraoperative cholangiogram Approved by: Sriram Lyn M.D. on 07/22/2021 at 17:07
--- NOTE | 2021-07-22 15:23 | SUR.OPER ---
Supine on padded OR bed, head on pillow, arms secured on padded arm boards at <90 degrees abduction, legs uncrossed, safety belt at thigh, tape over blanket over lower legs.
[2021-07-22] MEDS: BUPIVACAINE 0.5% (PF) VIAL 30 ML INJ (15:29)
[2021-07-22] MEDS: LIDOCAINE 1% W/EPI 20 ML INJ (15:30)
[2021-07-22] MEDS: SODIUM CHLORIDE 0.9% FLUSH 10 ML IV (15:32)
[2021-07-22] MEDS: IOPAMIDOL 15 ML VIAL INJ (15:32)
--- NOTE | 2021-07-22 16:40 | P.OP_ITS ---
Operative Date/Time/Diagnoses Date of procedure: 07/22/21 Time of procedure: 16:40 Pre-op diagnosis: Acute cholecystitis Post-op diagnosis: same Procedure & Clinicians Procedure: laparoscopic cholecystectomy with intraoperative cholangiogram Same procedure as scheduled: Yes Indications: Acute cholecystitis Surgeon: Bakari Chau Correction Warden: Dylan Kirby Click Yes if Unassisted: No Anesthesia Type: General Operative Notes Estimated Blood Loss (mL): 50 Procedure in detail: The patient was given preoperative antibiotic. The patient was brought to the operating room, placed on the table in the supine position. General endotracheal anesthesia was induced. The abdomen was prepped and draped. A time-out was performed. We made a 1 cm infraumbilical incision. We dissected down to the base of the umbilical stalk using cautery. We grasped the umbilical stalk with a Kiara clamp to elevate the abdominal wall. We scored the fascia in the midline with cautery 1 cm. We pierced the peritoneum with a Peon clamp. The Kartik port was placed and the abdomen was insufflated to 15 mmHg. A 10 mm 30 degree laparoscopic was inserted. There was no evidence of any injury from the entry. Next, we placed 5 mm ports in the subxiphoid position and right upper quadrant at the midclavicular line and anterior axillary line. Patient was then positioned in reverse Trendelenburg and the table was tilted to the left. The gallbladder was grasped at the dome and retracted cephalad. There were some adhesions of mesenteric tissue to the right liver which were carefully dissected with cautery to allow full retraction of the gallbladder. We then dissected the cystic structures with a combination of hook cautery and blunt dissection. We obtained a critical view. Next, a cholangiogram was performed using the 6 Latvian ureteral catheter. There was good flow of contrast into the duodenum and liver with no obvious filling defects. The cystic duct common duct junction was well visualized. We then placed hemoclips on the cystic duct and artery and divided the cystic duct and artery sharply between the clips. The gallbladder was then dissected off the liver and placed in a specimen retrieval bag. We irrigated the right upper quadrant and all the aspirate returned clear. We then removed the 5 mm ports under direct vision we removed the Kartik port. We then injected some local into the fascia and closed the fascia with 2 interrupted 0 Vicryl sutures. The skin incisions were closed with 4 Monocryl and Steri-Strips were applied. Band-Aids were applied over the Steri-Strips. EBL: 50 mL Specimen: Gallbladder Post-operative Condition: stable Disposition: PACU
[2021-07-22] MEDS: fentaNYL 100 MCG/2 ML INJ IV (16:59)
[2021-07-22] MEDS: ONDANSETRON 4 MG/2 ML INJ IV (17:13)
[2021-07-22] MEDS: OXYCODONE IR 5 MG TABLET PO (17:15)
[2021-07-22] MEDS: HYDROMORPHONE 1 MG INJ 0.5 MG IV (18:26)
[2021-07-22] MEDS: METOCLOPRAMIDE 10 MG/2 ML INJ IV (18:26)
[2021-07-22] MEDS: IBUPROFEN 600 MG TABLET PO (22:02)
[2021-07-23 00:38] VITALS: BP 113/69; PULSE 67; RESP 15; TEMP 36.3; O2SAT 95
[2021-07-23 04:11] VITALS: BP 113/70; PULSE 64; RESP 16; TEMP 36.3; O2SAT 98
[2021-07-23] MEDS: IBUPROFEN 600 MG TABLET PO ×2 (05:08→11:14)
[2021-07-23 09:05] VITALS: BP 113/68; PULSE 57; RESP 16; TEMP 36.3; O2SAT 96
[2021-07-23] MEDS: INFLUENZA VACCINE QIV 0.5 ML SYRINGE IM (10:22)
[2021-07-23] MEDS: HYDROCODONE/ACET 5/325 TABLET 1 TAB PO (11:13)
--- NOTE | 2021-07-23 13:20 | PC.NURSE ---
Discharge: Pt feels ready to d/c to home. Nausea resolved over night. Has been able to tolerate diet w/out problems. Has been voiding w/out diff. Vicodin has been effective for pain. Pt wanted to d/c home prior to script being changed per her request. Her d/c script was changed from oxy to vicodin per her request. Pt has telephoned to make aware change did occur. Discussed acetaminophen use as well. Take one plain tylenol instead of two with the vicodin. Takes [address] Kirby here and gave pt d/c instructions. Has been up walking in room with out problems. Pt understands wound care instructions. Reviewed d/c packet. Questions answered. Pt d/c to home via auto with friend.
== END 2021-07-23 11:15 | disposition home or self-care (01) ==
LOC: ED 07-21 12:30 → AC 07-21 14:14
PROVIDERS: Emergency Medicine; Admitting Provider Surgery; Emergency Provider Emergency Medicine; Referring Provider Emergency Medicine; Visit Provider Surgery
PROC: 0FT44ZZ Resection of Gallbladder, Percutaneous Endoscopic Approach (ICD-10-PCS; CPT 47562; principal; 2021-07-22 15:15)
DX: K80.00 Calculus of gallbladder with acute cholecystitis without obstruction (principal); R11.2 Nausea with vomiting, unspecified; Z20.822 Contact with and (suspected) exposure to COVID-19; Z23 Encounter for immunization
CPT/HCPCS: 47563; 36415; 74177; 74181; 74300; 80053; 81003; 81025; 83690; 85025; 85027; 87635; 90471; 90656; 93005; 93010; 96361; 96374; 96375; 96376; 99219; 99284; C9803; G0378; A9579; J0690; J1100; J1170; J1885; J2405; J2704; J2765; J3010; Q2038; Q9967

== ENCOUNTER 2025-08-06 20:25 | Emergency (ER) | payer OTHER, SELFPAY ==
[2021-07-21 19:19] VITALS: BMI 35.7
[2025-08-06 20:49] VITALS: BP 140/91; PULSE 74; RESP 16; TEMP 36.8; O2SAT 97; BMI 37.2
--- NOTE | 2025-08-06 20:59 | DI.RAD.S_ITS ---
PROCEDURE: XR HIP W PEL IF DONE LT 2V INDICATIONS: fall TECHNIQUE: AP pelvis with lateral view(s) of the left hip(s). COMPARISON: CT, CT ABDOMEN PELVIS W CON, 07/20/2021, 18:27. FINDINGS: Bones: No fractures or dislocations. Pelvic ring appears intact. No suspicious bony lesions. Soft tissues: The visualized bowel gas pattern is normal. No suspicious soft tissue calcifications. IMPRESSION: No visualized acute fracture or dislocation. However, if clinical concern and/or pain persist, short interval imaging followup in 7-10 days is recommended, as occult injury cannot be definitively excluded. Dictated by: Francisca Graham M.D. on 08/06/2025 at 21:44 Approved by: Francisca Graham M.D. on 08/06/2025 at 21:44
--- NOTE | 2025-08-07 01:41 | ED_ITS ---
HPI - Fall General Chief Complaint: Fall Stated Complaint: L hip sore on fri,today very painful,hard to walk Time Seen by Provider: 08/06/25 20:48 Related Data Previous Rx's ?Medication ?Instructions ?Recorded acetaminophen 325 mg capsule 650 mg (2 x 325 mg) PO QI D PRN 07/23/21 (Tylenol) pain #60 caps docusate sodium 100 mg capsule 100 mg PO BID #30 caps 07/23/21 (Colace) hydrocodone 10 mg-acetaminophen 1 tab PO Q6H PRN painf ul procedure 07/23/21 325 mg tablet #16 tabs ibuprofen 200 mg tablet 400 mg (2 x 200 mg) PO Q6H # 60 tabs 07/23/21 Allergies Allergy/AdvReac Type Severity Reaction Status Date / Time No Known Drug Allergies Allergy Verified 07/21/21 18:41 Patient History Social History household members: spouse alcohol intake: current alcohol intake frequency: holidays/special occasions only Exam Initial Vital Signs Initial Vital Signs: Vital Signs Temperature 98.3 F 08/06/25 20:49 Pulse Rate 74 08/06/25 20:49 Respiratory Rate 16 08/06/25 20:49 Blood Pressure 140/91 H 08/06/25 20:49 Pulse Oximetry 97 08/06/25 20:49 Oxygen Delivery Method Room Air 08/06/25 20:49 Course Orders Ordered: ED Orders 08/07/25 02:31 Ct Hip left without con Stat Discontinued Medications Hydrocodone Bitart/Acetaminophen (Hydrocodone/Acet 5/325 Prepack) 1 bottle MISC DIRECTED ONE Stop: 08/07/25 06:05 Last Admin: 08/07/25 06:09 Dose: 1 bottle Ketorolac Tromethamine (Ketorolac 30 Mg/Ml Vial) 30 mg IM NOW ONE Stop: 08/07/25 02:39 Last Admin: 08/07/25 02:59 Dose: 30 mg Documented By: WISAM Vital Signs Vital signs: Vital Signs - 8 hr 08/07/25 06:11 Pulse Rate 67 Respiratory Rate 18 Blood Pressure 118/69 Pulse Oximetry 96 Oxygen Delivery Method Room Air MDM - Fall MDM Narrative Medical decision making narrative: 54-year-old female with recent ground level fall and initial right-sided hip pain, then subsequent left hip pain without new fall, though might have had altered gait due to original right-sided hip injury. Right hip symptoms seemed to be improved. X-ray left hip requested. Left hip x-ray series, no acute fractures or dislocations or lesions. See radiology report. Still having significant pain, drove self, IM Toradol. We will order CT left hip, patient agreeable. CT left hip noncontrast. Impressions: ?No acute fractures or malalignment. No free fluid or pelvic hematoma. Probable pedunculated fibroid on the left ovarian pathology not excluded. Pelvic sonogram [place] confirmatory. See tele radiology report. Declines crutches for trial of nonweightbearing, we will try to be walking, seems more comfortable after IV Toradol dose. We discussed [id number] analgesic medications to take as needed for pain control. Hydrocodone/APAP home pack dispensed. Discharge Plan Departure Patient Disposition: Home Clinical Impression: Left hip pain, Pelvic mass Instructions: DI for Hip Pain Activity Restrictions/Additional Instructions: Recent fall with initial right-sided hip area discomfort, then left hip area discomfort, worse with ambulation. X-ray screening left hip did not show any obvious fracture dislocation or arthritic changes. CT additional imaging of the left hip did not show any bony pathology. Incidentally noted was suspected posterior fibroid versus some other pelvic mass, we did discuss pelvic ultrasound imaging, he would like to pursue this as an outpatient rather than for now, and unclear if this is related to your left hip area discomfort. Follow up with your regular doctor in the next couple of days to coordinate further pelvic evaluation, and to review your left hip symptoms. Return to this/nearest emergency department for any change worsening symptoms or any concerns prior. We did discuss on waiting with use of crutches, declined for now but you could consider use of [id number] crutches if needed. Take Tylenol and or Motrin as needed. Home pack of hydrocodone dispensed to use if needed for pain control. Prescriptions: No Action hydrocodone-acetaminophen 10-325 mg tablet 1 tab PO Q6H PRN (Reason: painful procedure) Qty: 16 0RF docusate sodium [Colace] 100 mg capsule 100 mg PO BID Qty: 30 0RF ibuprofen 200 mg tablet 400 mg PO Q6H Qty: 60 0RF acetaminophen [Tylenol] 325 mg capsule 650 mg PO QID PRN (Reason: pain) Qty: 60 0RF Stand Alone Forms: Patient Portal/API
--- NOTE | 2025-08-07 02:31 | DI.CT.S_ITS ---
PROCEDURE: CT HIP LEFT WITHOUT CON INDICATIONS: L hip pain, recent fall, neg XRays, painful to bear weight TECHNIQUE: Noncontrast 3 mm axial sections acquired through the bony pelvis. Additional 3 mm axial sections acquired through the symptomatic hip joint, with coronal and sagittal reformats. COMPARISON: [facility], CR, XR HIP W PEL LT 2V, 08/06/2025, 21:03. FINDINGS: Image quality: Excellent. Bones: No fracture or dislocation. No lytic or sclerotic osseous lesion. Normal alignment the pubic symphysis and bilateral sacroiliac joints. Soft tissues: Normal muscle bulk for age. Normal appendix. Left adnexal 4.5 cm mass. No inguinal lymphadenopathy. No pelvic sidewall lymphadenopathy. Otherwise the pelvic viscera is unremarkable. IMPRESSION: No acute osseous abnormality. If clinical symptoms persist, consider evaluation with left hip MRI to evaluate for underlying stress reaction or soft tissue injury. Left adnexal 4.5 cm mass, recommend correlation with abdominal ultrasound. Dictated by: Livan Hdez M.D. on 08/07/2025 at 8:14 Approved by: Livan Hdez M.D. on 08/07/2025 at 8:17
[2025-08-07] MEDS: KETOROLAC 30 MG/ML VIAL IM (02:59)
[2025-08-07 06:11] VITALS: BP 118/69; PULSE 67; RESP 18; O2SAT 96
== END 2025-08-07 06:20 | disposition home or self-care (01) ==
PROVIDERS: Emergency Provider Emergency Medicine
DX: R19.00 Intra-abdominal and pelvic swelling, mass and lump, unspecified site (principal); M25.552 Pain in left hip; W19.XXXA Unspecified fall, initial encounter
CPT/HCPCS: 73502; 73700; 96372; 99283; J1885